=== PATIENT | female | born 1985 | race Two or more races ===

== ENCOUNTER 2016-04-15 23:55 | Emergency (ER) | payer SELFPAY ==
--- NOTE | ~2016-04-15 | CT2 ---
[facility] A Service of [facility] RADIOLOGY TEXT RESULTS PATIENT: EDWIN JONES LOCATION: [facility] : 83 UNIT #: [id number] AGE: [address]: Jeb Hobbs MD SEX: F ORDER DR: [id number] [facility] [address] [place], [place] [address] [id number] E MR#: [id number] Acc #: [id number] NAME: EDWIN JONES : 1985 SEX: F STUDY DATE/TIME: 04/16/2016 02:02 UNIT: [facility] ROOM: STUDY DESCRIPTION: CT Abd and Pelv W Cont Attending Physician: Jeb Hobbs M.D. Ordering Physician: Jose Hay M.D. Primary Care Physician: Primary Care Physician No MEDICAL IMAGING REPORT This report is preliminary unless electronic signature is present Abdomen and pelvis CT, 04/16 at 0202 hours INDICATIONS Epigastric pain with nausea and vomiting for 1 day. TECHNIQUE Axial images were obtained through the abdomen and pelvis following IV contrast administration. Multiplanar reformats were obtained. No comparison. This CT exam was performed with one or more of the following radiation dose reduction techniques: Automatic exposure control, adjustment of mA and/or kV according to patient size, and iterative reconstruction. FINDINGS ABDOMEN: Study is degraded by motion. There is some mild atelectasis in the right lower lobe. Gallbladder is normal. No biliary obstruction is seen. Solid abdominal organs are normal. There are some mildly distended mid small bowel loops containing feculent material. This may simply reflect some stasis. Early small bowel obstruction could present similarly. The remainder of the small bowel in the abdomen is normal. The visualized colon is grossly normal. PELVIS: There is some mildly distended fluid-filled small bowel loops. The distal ileum is completely decompressed. No clear obstructing lesion is identified. The appendix is normal, as is the remainder of the colon. The bladder is normal. The uterus is normal. There are bilateral cystic and solid adnexal masses, which are presumably the ovaries. These are difficult to accurately measure due to their configuration and orientation in the pelvis. The one on the right side is predominantly in the cul-de-sac. It measures up to at least 6.3 cm. The one on the left side measures up to at least 4.8 cm. Free fluid is present in the pelvis and is nonspecific. There is either an exophytic fibroid or a soft tissue STS. [facility] A Service of [facility] RADIOLOGY TEXT RESULTS PATIENT: EDWIN JONES LOCATION: [facility] : 83 UNIT #: [id number] AGE: [address]: Jeb Hobbs MD SEX: F ORDER DR: nodule involving the right ovary measuring about 1.5 cm. Recommend follow up with pelvic ultrasound. IMPRESSION 1. Findings are concerning for developing mid small bowel obstruction. There is some feculent loops in the mid abdomen and there is some fluid-filled [id number] small bowel loops in the pelvis, with the distal ileum being completely decompressed. No focal obstruction point is seen. 2. The appendix is normal. 3. There are large, multilocular cystic and solid lesions in both adnexa, which are probably the ovaries. There is also free fluid on both sides of the pelvis. Follow up with a pelvic ultrasound is recommended. 4. The exam is degraded by motion but is otherwise negative. Dictated by... Jeb Jean Baptiste Jr., M.D. THIS IS AN ELECTRONICALLY VERIFIED REPORT Jeb Jean Baptiste Jr., M.D. at 04/16/2016 9:32 PM SUPA/azra TD: 04/16/2016 16:20 JOB #: [id number] MEDICAL IMAGING REPORT COPY
[2016-04-15 23:47] LABS: URINE SOURCE CLEAN CATCH
[2016-04-15 23:52] LABS: URINE APPEARANCE CLEAR; URINE BILIRUBIN NEG (NEG); URINE BLOOD 2+ (NEG); URINE COLOR YELLOW; URINE GLUCOSE NEG (NEG); URINE KETONE NEG (NEG); URINE LEUKOCYTE ESTERASE 2+ (NEG); URINE NITRATE NEG (NEG); URINE PH 5.5 (5-8); URINE PROTEIN NEG (NEG); URINE SPECIFIC GRAVITY 1.021 (1.003-1.035); URINE UROBILINOGEN 0.2 MG/DL (NEG)
[2016-04-15 23:56] LABS: URINE BACTERIA AUWI 1+ (NEGATIVE); URINE SQUAMOUS EPITHELIAL CELL OCC /[HPF]
[2016-04-16 00:34] LABS: BASOPHIL# 0.1 X10e3 (0-0.3); BASOPHIL% 0.4 % (0-2.5); EOSINOPHIL# 0.1 X10e3 (0-0.7); HEMATOCRIT 32.6 % (35.0-45.0); HEMOGLOBIN 10.2 gm/dL (12.0-16.0); LYMPHOCYTE# 3.4 X10e3 (1.0-3.5); LYMPHOCYTE% 25.4 % (17.0-45.0); MEAN CELL VOLUME 79.8 FL (83-96); MEAN CORPUSCULAR HGB CONC 31.3 g/dL (30-36); MONOCYTE# 0.7 X10e3 (0-1.0); MONOCYTE% 5.6 % (3.0-12.0); NEUTROPHIL% 67.6 % (40-75); PLATELET COUNT 299 X10e3 (140-420); RED BLOOD COUNT 4.09 X10e (3.90-5.30); RED CELL DISTRIBUTION WIDTH 16.4 % (11.0-15.5); WHITE BLOOD COUNT 13.3 X10e3 (4.0-10.5)
[2016-04-16 00:35] LABS: DIFF IND NO
[2016-04-16 01:17] LABS: ALKALINE PHOSPHATASE 77 U/L (32-92); ALT (SGPT) 23 U/L (10-40); AMYLASE 22 U/L (0-46); AST (SGOT) 18 U/L (10-42); BILIRUBIN, DIRECT <0.1 mg/dL (0.0-0.2); BILIRUBIN,INDIRECT 0.5 mg/dL (0.0-0.9); BILIRUBIN,TOTAL 0.6 mg/dL (0.2-2.0); BLOOD UREA NITROGEN 11 mg/dL (9-23); BUN/CREATININE RATIO 15.71; CALCIUM SERUM 8.6 mg/dL (8.4-10.2); CARBON DIOXIDE 24 mmol/L (22-31); CHLORIDE 103 mmol/L (100-111); CREATININE SERUM 0.7 mg/dL (0.6-1.4); GLOM FILT RATE Estimated ABOVE60 mL/min (>60); GLUCOSE FASTING 117 mg/dL (70-110); LIPASE 23 U/L (22-51); POTASSIUM 3.5 mmol/L (3.5-5.1); PROTEIN TOTAL SERUM 7.9 g/dL (6.0-8.3); SODIUM 136 mmol/L (135-145)
== END 2016-04-16 04:10 | disposition home or self-care (01) ==
LOC: CED 23:55
PROVIDERS: Emergency Medicine
DX: N30.00 Acute cystitis without hematuria (principal); K56.7 Ileus, unspecified
CPT/HCPCS: 36415; 74177; 80048; 80076; 81003; 82150; 83690; 85025; 96361; 96374; 96375; 99284; J2405; Q9967

== ENCOUNTER 2016-10-26 10:43 | Emergency (ER) | payer OTHER ==
--- NOTE | ~2016-10-26 | US98 ---
[facility] A Service of [facility] & [facility] RADIOLOGY TEXT RESULTS PATIENT: EDWIN JONES LOCATION: [facility] : 83 UNIT #: [id number] AGE: [address]: Tash Chaudhari APRN SEX: F ORDER DR: [id number] [facility] [address] [place] [address] [place], [place] [address] [id number] E MR#: [id number] Acc #: [id number] NAME: EDWIN JONES : 1985 SEX: F STUDY DATE/TIME: 10/26/2016 14:19 UNIT: [facility] ROOM: STUDY DESCRIPTION: US Pelvic Non-OB Complete Attending Physician: Tash Chaudhari A.P.R.N. Ordering Physician: Ed Yinka Lr M.D. Primary Care Physician: Zelda Primary Care Physician MEDICAL IMAGING REPORT This report is preliminary unless electronic signature is present EXAM Pelvic ultrasound INDICATIONS Bilateral pelvic pain for the past 2 months. PROCEDURE [place]-scale and Doppler imaging of the pelvis via transabdominal and transvaginal approach. COMPARISON None. FINDINGS Uterus is anteverted, measures 8.3 x 5.0 x 6.1 cm. There is an 11 mm nabothian cyst in the cervix. The uterus measures up to 9.2 cm in length on the transvaginal images. The uterus is anteverted and retroflexed. Endometrium measures 1.2 cm in thickness. Right ovary measures up to 6.7 cm. Right ovary contains a small cyst and a 4.6 cm homogeneous echotexture lesion. The left ovary measures up to 7 cm and contains a 5.8 cm homogeneously hypoechoic lesion with some internal material. There is a trace amount of free pelvic fluid. IMPRESSION 1. Endometrium within normal limits. 2. Bilateral slightly hypoechoic lesions in the right and left ovary containing some internal material, show features most in keeping with evolving hemorrhagic cysts. Recommend attention on followup, to document improvement. There are other smaller more simple-appearing cysts in both ovaries. Ovaries have a somewhat similar appearance on a previous CT from 04/16/2016. STS. [facility] A Service of [facility] & [facility] RADIOLOGY TEXT RESULTS PATIENT: EDWIN JONES LOCATION: [facility] : 83 UNIT #: [id number] AGE: [address]: Tash Chaudhari APRN SEX: F ORDER DR: Dictated by... Adam Valdes M.D. THIS IS AN ELECTRONICALLY VERIFIED REPORT Adam Valdes M.D. at 10/27/2016 12:08 PM SELENAD/joselo TD: 10/26/2016 18:01 JOB #: [id number] MEDICAL IMAGING REPORT Page 1 of 1 COPY
[2016-10-26 12:08] LABS: POC - CKMB 1.6 ng/mL (0.0-7.9); POC - TROPONIN <0.05 ng/mL (<=0.05)
[2016-10-26 12:26] LABS: URINE SOURCE CLEAN CATCH
[2016-10-26 12:33] LABS: URINE APPEARANCE CLEAR; URINE BILIRUBIN NEG (NEG); URINE BLOOD NEG (NEG); URINE COLOR YELLOW; URINE GLUCOSE NEG (NEG); URINE KETONE NEG (NEG); URINE LEUKOCYTE ESTERASE TRACE (NEG); URINE NITRATE NEG (NEG); URINE PROTEIN NEG (NEG); URINE SPECIFIC GRAVITY 1.006 (1.003-1.035); URINE UROBILINOGEN 0.2 MG/DL (NEG)
[2016-10-26 12:33] LABS: BASOPHIL% 0.3 % (0-2.5); DIFF IND YES; EOSINOPHIL% 0.3 % (0.0-7.0); HEMOGLOBIN 11.4 gm/dL (12.0-16.0); LYMPHOCYTE% 20.1 % (17.0-45.0); MEAN CELL VOLUME 80.2 FL (83-96); MEAN CORPUSCULAR HEMOGLOBIN 25.4 PG (28-34); MEAN CORPUSCULAR HGB CONC 31.7 g/dL (30-36); MEAN PLATELET VOLUME 8.8 FL (6.5-11.5); MONOCYTE# 0.3 X10e3 (0-1.0); MONOCYTE% 3.2 % (3.0-12.0); NEUTROPHIL# 7.7 X10e3 (1.5-7.1); NEUTROPHIL% 76.1 % (40-75); PLATELET COUNT 428 X10e3 (140-420); RED BLOOD COUNT 4.49 X10e (3.90-5.30); RED CELL DISTRIBUTION WIDTH 22.2 % (11.0-15.5); WHITE BLOOD COUNT 10.1 X10e3 (4.0-10.5)
[2016-10-26 12:36] LABS: URBCS1 AUWI 0-2 /[HPF] (0-2); URINE BACTERIA AUWI NEG (NEGATIVE); URINE SQUAMOUS EPITHELIAL CELL NONE SEEN /[HPF]; UWBCS1 AUWI 0-2 (0-5)
[2016-10-26 12:47] LABS: ANISOCYTOSIS MOD; PLATELET ESTIMATE NORMAL (NORMAL)
[2016-10-26 12:47] LABS: CULTURE INDICATED? NO
[2016-10-26 12:48] LABS: HYPOCHROMIA SL; MICROCYTOSIS SL
[2016-10-26 12:54] LABS: ALBUMIN SERUM 4.4 g/dL (3.5-5.0); ALKALINE PHOSPHATASE 68 U/L (32-92); ALT (SGPT) 13 U/L (10-40); AMYLASE 21 U/L (0-46); AST (SGOT) 17 U/L (10-42); BILIRUBIN,TOTAL 0.3 mg/dL (0.2-2.0); BLOOD UREA NITROGEN 8 mg/dL (9-23); BUN/CREATININE RATIO 13.33; CALCIUM SERUM 9.3 mg/dL (8.4-10.2); CARBON DIOXIDE 24 mmol/L (22-31); CHLORIDE 104 mmol/L (100-111); CREATININE SERUM 0.6 mg/dL (0.6-1.4); GLOM FILT RATE Estimated 121.5 mL/min (>60); GLUCOSE FASTING 95 mg/dL (70-110); LIPASE 23 U/L (22-51); POTASSIUM 3.6 mmol/L (3.5-5.1); SODIUM 136 mmol/L (135-145)
[2016-10-26 12:57] LABS: BILIRUBIN, DIRECT <0.1 mg/dL (0.0-0.2); BILIRUBIN,INDIRECT 0.2 mg/dL (0.0-0.9)
[2016-10-29 11:32] LABS: CHLAMYDIA TRACH Not Detected (Not Detected); N GONOR Not Detected (Not Detected)
== END 2016-10-26 17:19 | disposition home or self-care (01) ==
LOC: CED 10:43 → CFTX 10:43
PROVIDERS: Nurse Practitioner
DX: N83.201 Unspecified ovarian cyst, right side (principal); N83.202 Unspecified ovarian cyst, left side; E11.9 Type 2 diabetes mellitus without complications
CPT/HCPCS: 36415; 76830; 76856; 80048; 80076; 81003; 82150; 82553; 83690; 84484; 84703; 85025; 87491; 87591; 87808; 87905; 96372; 99284; J2270; J2405